=== PATIENT | male | born 1975 | race African-American/Black ===

== ENCOUNTER 2020-05-08 11:59 | Inpatient (IN) | payer OTHER ==
[~2020-05-08] VITALS: Ht 195.6 cm; Wt 95.3 kg
--- NOTE | 2020-05-08 12:13 | NUR ---
pt presents to ER for c/[place] [id number] until 1100. Placed on bedside monitor. EKG done, results given to Dr. Mcdermott. Pt denies chest pain at this time. Pt in no acuted distress. Awaiting MD russell.
[2020-05-08 13:01] LABS: BASOPHILS # (AUTO) 0.1 K/uL (0.0-8.0); BASOPHILS % (AUTO) 1.1 % (0.0-2.0); EOSINOPHILS # (AUTO) 0.2 K/uL (0.0-0.7); EOSINOPHILS % (AUTO) 3.9 % (0.0-7.0); HEMATOCRIT 50.7 % (36.7-47.1); HEMOGLOBIN 17.5 g/dL (12.5-16.3); LYMPHOCYTES # (AUTO) 1.9 K/uL (20.0-40.0); LYMPHOCYTES % (AUTO) 35.7 % (20.5-51.5); MEAN CORPUSCULAR HEMOGLOBIN 30.3 uug (23.8-33.4); MEAN CORPUSCULAR HGB CONC 35 g/dL (32.5-36.3); MEAN CORPUSCULAR VOLUME 87.9 fL (73.0-96.2); MONOCYTES # (AUTO) 0.4 K/uL (2.0-10.0); MONOCYTES % (AUTO) 7.4 % (0.0-11.0); NEUTROPHILS # (AUTO) 2.7 K/uL (1.8-8.9); NEUTROPHILS % (AUTO) 51.9 % (38.5-71.5); PLATELET COUNT (AUTO) 189 K/uL (152-348); RED BLOOD CELL COUNT(AUTO) 5.77 MIL/uL (4.06-5.63); WHITE BLOOD COUNT (AUTO) 5.3 K/uL (3.6-10.2)
[2020-05-08 13:05] LABS: BILIRUBIN,DIRECT 0.1 mg/dL (0.0-0.2); BILIRUBIN,TOTAL 0.8 mg/dL (0.2-1.0); CREATININE 1.3 mg/dL (0.6-1.3); POTASSIUM 3.9 mmol/L (3.5-5.1); TOTAL PROTEIN, SERUM 7.2 g/dL (6.4-8.2)
[2020-05-08 13:13] LABS: THYROID STIMULATING HORMONE 0.87 mIU/mL (0.358-3.740)
[2020-05-08] MEDS ORDERED: IV NORMAL SALINE 1000 ML BAG IV ONE ×2 (13:15→13:30)
[2020-05-08] MEDS ORDERED: ASPIRIN 325 MG TABLET PO ONE (16:15)
[2020-05-08] MEDS ORDERED: ASPIRIN 325 MG TABLET ONE (16:22)
--- NOTE | 2020-05-08 17:59 | NUR ---
attempted to give report to Tele, per receptionist scheduler nurse Ming is with a patient and to call back.
--- NOTE | 2020-05-08 18:36 | NUR ---
Report given to Janelle, per Janelle she will move pt to 315 but room needs to be clean and she will call back when room is ready.
--- NOTE | 2020-05-08 18:50 | NUR ---
Per Janelle, to send patient in 20 min to [facility] 315, states that room is being cleaned at this time.
--- NOTE | 2020-05-08 19:00 | NUR ---
Oly made aware that report has been given and pt needs to be tx to the unit when room is ready.
[2020-05-08] MEDS ORDERED: HYDROCODONE/APAP 5-325MG TABLET PO PRN (19:15)
[2020-05-08] MEDS ORDERED: ACETAMINOPHEN 325 MG TABLET PO PRN (19:15)
[2020-05-08] MEDS ORDERED: ZOLPIDEM 5 MG TABLET PO PRN (19:15)
[2020-05-08] MEDS ORDERED: ONDANSETRON 4 MG/2 ML VIAL IV PRN (19:15)
--- NOTE | 2020-05-08 19:35 | NUR ---
Pt. admitted to Tele , under care of Dr. Pace, patient declined to be wheeled in wheelchair and insisted on walking to third floor, [employer] completed and all belongings sesnt up with patient, no signs of distress noted
--- NOTE | 2020-05-08 19:45 | NUR ---
ADMITTED PATIENT ON TELE FLOOR UNDER THE CARE OF DR. DEGROOT. PATIENT ALERT ORIENTED NO SOB NO CHEST PAIN. PATIENT COMPLAIN OF CHEST PAIN AT THIS TIME. CONT TO MONITOR.
[2020-05-08 20:34] VITALS: BP 134/91
[2020-05-08 21:42] LABS: *AMPHETAMINE, URINE NEGATIVE (NEGATIVE); *CANNABINOID, URINE NEGATIVE (NEGATIVE); *COCCAINE, URINE NEGATIVE (NEGATIVE); *OPIATE, URINE NEGATIVE (NEGATIVE); *PHENCYCLIDINE SCREEN,URINE NEGATIVE (NEGATIVE)
[2020-05-09 00:06] VITALS: BP 123/83
[2020-05-09 04:42] VITALS: BP 117/80
[2020-05-09 06:08] LABS: BASOPHILS # (AUTO) 0.1 K/uL (0.0-8.0); BASOPHILS % (AUTO) 0.9 % (0.0-2.0); EOSINOPHILS # (AUTO) 0.3 K/uL (0.0-0.7); EOSINOPHILS % (AUTO) 4.4 % (0.0-7.0); HEMATOCRIT 49.6 % (36.7-47.1); HEMOGLOBIN 16.8 g/dL (12.5-16.3); LYMPHOCYTES # (AUTO) 2.6 K/uL (20.0-40.0); LYMPHOCYTES % (AUTO) 38.5 % (20.5-51.5); MEAN CORPUSCULAR HEMOGLOBIN 30.2 uug (23.8-33.4); MEAN CORPUSCULAR HGB CONC 34 g/dL (32.5-36.3); MONOCYTES # (AUTO) 0.5 K/uL (2.0-10.0); MONOCYTES % (AUTO) 7.2 % (0.0-11.0); NEUTROPHILS # (AUTO) 3.3 K/uL (1.8-8.9); PLATELET COUNT (AUTO) 171 K/uL (152-348); RED BLOOD CELL COUNT(AUTO) 5.58 MIL/uL (4.06-5.63); WHITE BLOOD COUNT (AUTO) 6.8 K/uL (3.6-10.2)
--- NOTE | 2020-05-09 06:12 | NUR ---
PATIENT ALERT ORIENTED, NO SOB NO CHEST PAIN, COMPLAIN OF SLIGHT HEADACHES RATED 1. PATIENT TELE MONITOR SINUS RYTHM , CONT TO MONITOR.
[2020-05-09 06:22] LABS: BILIRUBIN,TOTAL 0.7 mg/dL (0.2-1.0); CREATININE 1.4 mg/dL (0.6-1.3); MAGNESIUM 2.2 mg/dL (1.8-2.4); PHOSPHOROUS 3.6 mg/dL (2.5-4.9); POTASSIUM 3.7 mmol/L (3.5-5.1); TOTAL PROTEIN, SERUM 6.4 g/dL (6.4-8.2)
[2020-05-09 06:30] LABS: THYROID STIMULATING HORMONE 0.983 mIU/mL (0.358-3.740)
[2020-05-09] MEDS ORDERED: PANTOPRAZOLE SODIUM 40 MG TABLET.DR PO SCH (07:00)
--- NOTE | 2020-05-09 07:30 | NUR ---
RECEIVED PATIENT IN BED AWAKE ALERT AND ORIENTED DENIES PAIN OR DISCOMFORTS AT THIS TIME REMAIN ON TELE MONITORING ORDERED WITH NO ECTOPY AT THIS TIME.CALL LIGHTS AND PERSONAL BELONGINGS ARE WITHIN EASY REACH MADE COMFORTABLE AND WILL CONTINUE TO OBSERVE.
[2020-05-09 08:41] VITALS: BP 116/75
[2020-05-09] MEDS ORDERED: ASPIRIN EC 81 MG TABLET.DR PO SCH (09:00)
--- NOTE | 2020-05-09 14:30 | NUR ---
ECHO COMPLETED ORDERED.
[2020-05-09 14:59] VITALS: BP 126/84
--- NOTE | 2020-05-09 15:00 | NUR ---
[facility] [employer] DR BOWLING HERE AND SEEN PATIENT AND STATED THAT PATIENT CAN BE DISCHARGED TODAY AND STATED THAT HE WILL NOTIFY DR TREVOR MADRIGAL.
[2020-05-09] MEDS ORDERED: ASPI81TA31 PO (15:16)
--- NOTE | 2020-05-09 15:16 | NUR ---
ORDER NOTED TO DISCHARGE PATIENT HOME TODAY FROM DR MADRIGAL PATIENT AWARE AND STATED THAT HIS CADEN WILL BE ABLE TO PICK HIM UP.
--- NOTE | 2020-05-09 15:53 | NUR ---
PATIENT DISCHARGE ASSISTED OUT DISCHARGE INSTRUCTIONS GIVEN PATIENT TO GO TO DR ZAPATA OFFICE TOMORROW AT 1500 AND HE EXPRESSED UNDERSTANDING ADDRESS AND PHONE NUMBER WAS PROVIDED.
[2020-05-09] MEDS ORDERED: ATORVASTATIN 20 MG TABLET PO SCH (21:00)
== END 2020-05-09 15:53 | disposition home or self-care (01) | DRG 282 ==
LOC: ER 11:59 → TELE3 19:00
PROVIDERS: ADMIT Internal Medicine
DX: I47.1 Supraventricular tachycardia (principal); I21.A1 Myocardial infarction type 2; R00.2 Palpitations; Z82.49 Family history of ischemic heart disease and other diseases of the circulatory system; E86.0 Dehydration
CPT/HCPCS: 36415; 70030-TC; 71045; 83735; 84100; 84443; 85025; 93005; 93307; A4663; G0378; J7030